=== PATIENT | female | born 1965 | race Two or more races ===

== ENCOUNTER → 2022-03-09 00:05 | Outpatient (CLI) | payer MEDICARE, SELFPAY ==
[2022-03-09 14:13] LABS: SARS-CoV-2 RNA PCR Negative
== END ==
PROVIDERS: PCP Family Medicine; Visit Provider Internal Medicine Gastroenterology
DX: Z01.812 Encounter for preprocedural laboratory examination (principal); Z20.822 Contact with and (suspected) exposure to COVID-19
CPT/HCPCS: C9803; U0003; U0005

== ENCOUNTER 2022-03-12 01:26 | Day surgery (SDC) | payer MEDICARE, SELFPAY ==
[2022-02-25 13:48] VITALS: BMI 29.2
[2022-03-12 07:27] VITALS: BP 126/78; PULSE 78; RESP 18; TEMP 36.2; O2SAT 100; BMI 29.2
[2022-03-12] MEDS: LACTATED RINGERS 1,000 ML 150 ML IV CONT (07:47)
--- NOTE | 2022-03-12 07:58 | P.CONGI_ITS ---
Assessment and Plan Assessment and plan (1) Encounter for screening colonoscopy: Code(s): Z12.11 - Encounter for screening for malignant neoplasm of colon Status: Acute Assessment and Plan: Patient presents today for neoplasia screening colonoscopy. She appears to be at average risk for colon polyps. Further recommendations will be given after endoscopy. (2) Constipation: Code(s): K59.00 - Constipation, unspecified Status: Acute Assessment and Plan: Patient complains of chronic lifelong constipation. Currently using an herbal supplement. I would recommend she try fiber such as Benefiber and add MiraLax on a daily basis initially. Further recommendations may be given after endoscopy. GI Consult Note Consult date/time: 03/12/22 07:58 HPI: Rah Anton is a 56 year old female Presents for screening colonoscopy. Patient has never previously had a colonoscopy. She reports a lifelong history of constipation. She denies any bleeding. She denies abdominal pain. It is uncertain what medication she has taken previously. Currently she takes an herbal supplement called Triphala. that she believes helps her constipation. She denies any weight loss. She presents today for colonoscopy. Her family history is noncontributory. Review of Systems Review of Systems: All systems reviewed & are unremarkable except as noted in HPI and below PMFSH Social History Social History Years smoked: 37 Smoking status: Former smoker Tobacco type: cigarettes Alcohol intake: current Alcohol use details: rarely-over a year ago Substance use: never Substance use type: does not use Living arrangements: alone Spiritual care concerns: No Meds Home Medications and Allergies Home Medications Medication Instructions Recorded Confirmed Type Adult One Daily Multivitamin 1 tab-cap PO DAILY 02/25/22 02/25/22 History [place] 3 Fish Oil 1 tab-cap PO BID 02/25/22 02/25/22 History Tart [place]as[place] Extract 1 tab-cap PO DAILY 02/25/22 02/25/22 History Vitamin B-12 1 tab-cap PO DAILY 02/25/22 02/25/22 History calcium-mag oxide-vitamin D3 1 tab-cap PO DAILY 02/25/22 02/25/22 History selenium 1 tab-cap PO DAILY 02/25/22 02/25/22 History thyroid (pork) [[place] Thyroid] 30 mg PO DAILY 02/25/22 02/25/22 History tyrosine 1 tab-cap PO DAILY 02/25/22 02/25/22 History Allergies Allergy/AdvReac Type Severity Reaction Status Date / Time hydromorphone [From Dilaudid] Allergy Flushing Verified 03/12/22 07:26 Vital Signs Vital Signs - 24 hr 03/12/22 07:27 Temperature 97.2 F L Pulse Rate 78 Respiratory Rate 18 Blood Pressure 126/78 Pulse Oximetry 100 Exam Narrative: Physical exam reveals patient to be alert. Vital signs stable. HEENT exam is unremarkable. Patient is anicteric. Lungs are clear to auscultation and percussion. Heart is without murmur or extra sounds. Abdomen bowel sounds are present soft nontender with no organomegaly. Digital external rectal exam is normal.
--- NOTE | 2022-03-12 08:16 | P.PNAN_ITS ---
Anes - Initial Pre Proc Eval Procedure: Operation Date: 03/12/22 08:30 Proposed Procedures p Screening Colonoscopy - Pancho Schulte MD Date/Time: 03/12/22 08:16 Surgeon: Pancho Schulte MD Pre Op Diagnosis: neoplasm screening Patient Data Age: 56 Gender: F Height: 1.6 m Weight: 74.8 kg Last Vital Signs Temp 97.2 F L 03/12/22 07:27 Pulse 78 03/12/22 07:27 Resp 18 03/12/22 07:27 BP 126/78 03/12/22 07:27 Pulse Ox 100 03/12/22 07:27 Allergies Allergy/AdvReac Type Severity Reaction Status Date / Time hydromorphone [From Dilaudid] Allergy Flushing Verified 03/12/22 07:26 Home Medications Medication Instructions Recorded Confirmed Type Adult One Daily Multivitamin 1 tab-cap PO DAILY 02/25/22 02/25/22 History [place] 3 Fish Oil 1 tab-cap PO BID 02/25/22 02/25/22 History Tart [place] Extract 1 tab-cap PO DAILY 02/25/22 02/25/22 History Vitamin B-12 1 tab-cap PO DAILY 02/25/22 02/25/22 History calcium-mag oxide-vitamin D3 1 tab-cap PO DAILY 02/25/22 02/25/22 History selenium 1 tab-cap PO DAILY 02/25/22 02/25/22 History thyroid (pork) [[place] Thyroid] 30 mg PO DAILY 02/25/22 02/25/22 History tyrosine 1 tab-cap PO DAILY 02/25/22 02/25/22 History Patient hx anesthesia problems: none Family hx anesthesia problems: none Results Review: All pre-operative results and documents have been reviewed as part of the pre-operative evaluation. PMFSH Social History Social History Years smoked: 37 Smoking status: Former smoker Tobacco type: cigarettes Alcohol intake: current Alcohol use details: rarely-over a year ago Substance use: never Substance use type: does not use Living arrangements: alone Spiritual care concerns: No Anes - Eval Final PreProcedure Day of Procedure 03/12/22 08:16 Patient weight: overweight Heart: regular rate and rhythm Lungs: clear to auscultation Airway: Mallampati scale class II Neurological: alert and oriented Last oral intake: >/= 8 hours ASA classification: III Emergent: no Anesthetic plan: proceed Anesthesia type and monitoring: general GIVS and standard monitoring Results Review: All pre-operative results and documents have been reviewed as part of the pre-operative evaluation. Informed Consent: The patient's anesthetic plan and its attendant risks and benefits were discussed with the patient/family/POA. Questions were solicited and answers provided to the satisfaction of the patient/family/POA.
[2022-03-12 08:56] VITALS: BP 101/61; PULSE 65; RESP 21; O2SAT 98
[2022-03-12 09:06] VITALS: BP 140/85; PULSE 77; RESP 20; O2SAT 98
[2022-03-12 09:16] VITALS: BP 109/72; PULSE 69; RESP 14; O2SAT 100
== END 2022-03-12 09:27 | disposition home or self-care (01) ==
PROVIDERS: PCP Family Medicine; Visit Provider Internal Medicine Gastroenterology
PROC: 0DJD8ZZ Inspection of Lower Intestinal Tract, Via Natural or Artificial Opening Endoscopic (ICD-10-PCS; CPT 45378; principal; 2022-03-12 08:30)
DX: Z12.11 Encounter for screening for malignant neoplasm of colon (principal); K62.1 Rectal polyp; K64.8 Other hemorrhoids; K59.00 Constipation, unspecified; Z87.891 Personal history of nicotine dependence
CPT/HCPCS: 45385; C9803; J2704; J7120; U0003; U0005

== ENCOUNTER 2024-02-18 08:12 | Outpatient (CLI) | payer MEDICARE, SELFPAY ==
--- NOTE | 2024-02-18 12:37 | WPDPFTINT ---
PFT Procedure Performed PFT Procedure Performed Spirometry with Pre/Post Bronchodilator Plethysmography (Lung Vol) Diffusing Cap (DLCO) Flow Vol Loop PFT Interpretation This is a pulmonary function test with pre and post-bronchodilator spirometry, plethysmography and diffusing capacity. The test was performed and results interpreted in accordance with the 2019 and 2005 ATS/ERS Task Force guidelines respectively using the Global Lung Function Initiative-2012 reference equations. Patient demonstrated good effort and cooperation. Reproducibility criteria were met. The quality of the pre bronchodilator spirometry maneuver was Grade A and post bronchodilator spirometry maneuver was Grade A. Findings: Spirometry: The contour the inspiratory and expiratory flow tracing are normal. The pre bronchodilator FVC is 2.73 L, 88% predicted. The pre bronchodilator FEV1 is 2.11 L, 85% predicted. The pre bronchodilator FEV1: FVC ratio 77%. The post bronchodilator FVC is 2.56 L, representing a 6% decrease. The post bronchodilator FEV1 is 2.09 L, representing 1% decrease. The post bronchodilator FEV1: FVC ratio is 82%. Plethysmography: The total lung capacity is 4.63 L, 95% predicted. The functional residual capacity is 1.33 L, 48% predicted. The residual volume is 1.30 L, 69% predicted. Diffusing capacity: The diffusing capacity unadjusted for hemoglobin and carboxyhemoglobin is 13.0, 61% predicted. The diffusing capacity adjusted for alveolar volume is 5.50, 122% predicted. Impression: The spirometry is normal without evidence of an obstructive abnormality. There is no significant improvement after inhaling a single dose of albuterol. The total lung capacity and residual volume are normal with a decreased functional residual capacity. This is an abnormal but nonspecific lung volume pattern. The diffusing capacity unadjusted for hemoglobin and carboxyhemoglobin is mildly decreased and normalizes when adjusted for alveolar volume. There are no prior studies for comparison
== END 2024-02-18 08:13 | disposition home or self-care (01) ==
LOC: ANHPFT 08:13
PROVIDERS: PCP Family Medicine; Visit Provider Physician Assistant
DX: R06.09 Other forms of dyspnea (principal); Z87.891 Personal history of nicotine dependence
CPT/HCPCS: 94060; 94726; 94729

== ENCOUNTER 2024-04-14 09:55 | Outpatient (CLI) | payer MEDICARE, SELFPAY ==
--- NOTE | ~2024-04-14 | CT_ITS ---
CT Scan of the Chest without Contrast: Clinical Indication: Solitary pulmonary nodule Technique: Contiguous sections were acquired throughout the chest without intravenous contrast. Dose reduction technique was used on this scan by utilizing automated exposure control and iterative recon struction technique. The dose-length product (DLP) was 167.02 mGy-cm. Findings: There is no evidence of any significant mediastinal, hilar or axillary lymphadenopathy. The mediastin al soft tissues appear normal. There is no evidence of pleural or pericardial effusion. Small calcified left upper lobe granuloma noted. 2 mm right middle lobe pulmonary nodule present.. Images through the upper abdomen reveal no abnormalities. Impression: 2 mm right middle lobe pulmonary nodule. According to Fleischner Society criteria, for a low-risk pat ient, no further follow-up required. For a high-risk patient, consider 12 month follow-up CT. Reviewed, dictated and finalized at [facility]. Impression: 2 mm right middle lobe pulmonary nodule. According to Fleischner Society criter ia, for a low-risk patient, no further follow-up required. For a high-risk caroline ent, consider 12 month follow-up CT.
== END 2024-04-14 09:56 | disposition home or self-care (01) ==
LOC: ANHIMG 09:56
PROVIDERS: PCP Family Medicine; Visit Provider Physician Assistant
DX: R91.1 Solitary pulmonary nodule (principal); R06.09 Other forms of dyspnea; Z87.891 Personal history of nicotine dependence
CPT/HCPCS: 71250

== ENCOUNTER 2024-05-05 08:57 | Outpatient (CLI) | payer MEDICARE, SELFPAY ==
[2024-05-05 12:43] LABS: Hematocrit 40.5 % (37.0-47.0); Hemoglobin 13.1 g/dL (12.0-15.0); Mean Corpuscular HGB Conc 32.3 g/dl (32-36); Mean Corpuscular Hemoglobin 29.4 pg (26-34); Mean Corpuscular Volume 90.8 fl (80-100); Mean Platelet Volume 12.8 fl (7.4-10.4); Platelet Count Result 257 k/mm3 (150-375); Red Blood Count 4.46 M/mm3 (4.2-5.4); Red Cell Distribution Width 13.2 % (11.5-14.5); White Blood Count 5.7 K/mm3 (4.5-10.0)
[2024-05-05 13:27] LABS: Alanine Aminotransferase 29 U/L (6-35); Albumin Level 4.5 g/dL (3.5-5.1); Alkaline Phosphatase 106 U/L (38-126); Anion Gap 6 mmol/L (4-12); Aspartate Amino Transferase 52 U/L (14-36); Bilirubin,Total 0.6 mg/dL (0.2-1.3); Blood Urea Nitrogen 26 mg/dL (7-17); Calcium 9.3 mg/dL (8.4-10.2); Carbon Dioxide 28 mmol/L (22-30); Chloride 106 mmol/L (98-107); Cholesterol 239 mg/dL (0-200); Estimated Glomerular Filt Rate > 60; Glucose 111 mg/dL (65-110); HDL Direct 48 mg/dL; Potassium 4.4 mmol/L (3.4-5.0); Sodium 140 mmol/L (137-145); Triglycerides 116 mg/dL (<150)
[2024-05-05 13:32] LABS: Free T4 Free Thyroxine 0.92 ng/mL (0.78-2.19)
[2024-05-05 13:33] LABS: Hemoglobin A1C 5.9 % (<5.7)
[2024-05-05 13:38] LABS: LDL Cholesterol Direct 164 mg/dL
== END 2024-05-05 08:58 | disposition home or self-care (01) ==
PROVIDERS: PCP Family Medicine; Visit Provider Family Medicine
DX: E06.3 Autoimmune thyroiditis (principal); G43.909 Migraine, unspecified, not intractable, without status migrainosus; M19.90 Unspecified osteoarthritis, unspecified site; R73.03 Prediabetes; Z79.899 Other long term (current) drug therapy
CPT/HCPCS: 36415; 80053; 80061; 83036; 84439; 84443; 85027

== ENCOUNTER 2024-10-01 09:07 | Outpatient (CLI) | payer MEDICARE, SELFPAY ==
[2024-10-01 12:05] LABS: Hematocrit 41.3 % (37.0-47.0); Hemoglobin 13.3 g/dL (12.0-15.0); Immature Platelet Fraction Pct 14.3 % (0.9-11.2); Mean Corpuscular HGB Conc 32.2 g/dl (32-36); Mean Corpuscular Hemoglobin 29.7 pg (26-34); Mean Corpuscular Volume 92.2 fl (80-100); Platelet Count Result 255 k/mm3 (150-375); Red Blood Count 4.48 M/mm3 (4.2-5.4); Red Cell Distribution Width 13.3 % (11.5-14.5); White Blood Count 6.3 K/mm3 (4.5-10.0)
[2024-10-01 12:23] LABS: Alanine Aminotransferase 37 U/L (6-35); Albumin Level 4.4 g/dL (3.5-5.1); Alkaline Phosphatase 109 U/L (38-126); Anion Gap 6 mmol/L (4-12); Aspartate Amino Transferase 54 U/L (14-36); Bilirubin,Total 0.6 mg/dL (0.2-1.3); Blood Urea Nitrogen 26 mg/dL (7-17); Calcium 9.2 mg/dL (8.4-10.2); Carbon Dioxide 29 mmol/L (22-30); Chloride 104 mmol/L (98-107); Cholesterol 194 mg/dL (0-200); Estimated Glomerular Filt Rate > 60; Glucose 116 mg/dL (65-110); HDL Direct 43 mg/dL; Potassium 4.3 mmol/L (3.4-5.0); Sodium 139 mmol/L (137-145); Triglycerides 93 mg/dL (<150)
[2024-10-01 12:38] LABS: LDL Cholesterol Direct 113 mg/dL
[2024-10-01 12:58] LABS: Thyroid Stimulating Hormone 0.999 uIU/mL (0.465-4.680)
[2024-10-01 13:05] LABS: Hemoglobin A1C 6.3 % (<5.7)
== END 2024-10-01 09:08 | disposition home or self-care (01) ==
PROVIDERS: PCP Family Medicine; Visit Provider Family Medicine
DX: R73.03 Prediabetes (principal); Z79.899 Other long term (current) drug therapy
CPT/HCPCS: 36415; 80053; 80061; 83036; 84443; 85027; 85055

== ENCOUNTER 2025-06-15 08:49 | Outpatient (CLI) | payer BC, SELFPAY ==
--- OUTSIDE RECORDS SUMMARY | 2025-06-15 08:59 | XMS_ITS | Continuity of Care Document ---
Author Organization [facility] Address [address] [place] [address] Phone Care Team Providers Care Paper Tube Cutter Name Role Phone Matt Worley DDS Unavailable Unavailable Procedures Procedure Date Resin Based Composite One Surface Amalgam-one surface, primary or permanen t Comprehensive oral evaluation-new or est ablished P Intraoral-periapical first film 009 Bitewing Single Film Advance Directives Directive Yes / No Effective Date File Name No Information Encounters Encounter Description Practice Location Reason(s) For Visit Diagnoses Date Provider Providers Copied on Encounter [facility], [address] [place] [address], [facility], tel:[phone] [facility] No Information Brunilda Gutierrez. [address] [place] [address], [facility], . tel:[phone] [facility], [address] [place] [address], [facility], tel:[phone] [facility] No Information Gargir Luis. [address] [place] [address], [facility], . tel:[phone] [facility], [address] [place] [address], [facility], tel:[phone] [facility] No Information Brunilda Gutierrez. [address] [place], [place], [facility], . tel:[phone] Family History Family Member Type Diagnosis Age At Onset No Information Payers Payer name Insurance type Covered alliance party ID Murray escobar(s) [employer] Medicaid Dental [id number] Social History Type Description Quantity Date Captured Comments Sex Female Smoking Status No Information Chief Complaint And Reason For Visit No Information History Of Present Illness Encounter Date Complaint History Of Prese nt Illness No Information Instructions Date Instruction Additional Infor mation No Information Assessments Type Assessment Date No Information Patient Care Teams Name Effective Dates (start - stop) Status Members No Information
--- OUTSIDE RECORDS SUMMARY | 2025-06-15 08:59 | XMS_ITS | Clinical Summary ---
Author Organization [facility] Address [address] [place] [address] Phone Care Team Providers Care Central Sterile Tech Name Role Phone LowSara jameson Primary Care Provider [phone] Allergies Active Allergy Reactions Criticality Noted Date Comments Hydromorphone Hcl Swelling 03/26/2016 Mushroom Extract Complex (Obsolete) Vomiting 01/10/2020 Other-Environmental Allergen (Not Found In Search) Other (see Comments) 12/12/2020 Migraine cocktail- causes seizures Medications MAGNESIUM PO Take by mouth. Active [place]-3 Fatty Acids (OMEGA 3 PO) Take by mouth. Active Calcium Acetate, Phos Binder, (CALCIUM ACETATE PO) Take by mouth. Active Ascorbic Acid (VITAMIN C PO) Take by mouth. Active Black Cohosh 540 MG Capsule Take by mouth. Active Probiotic, Lactobacillus, Capsule Take by mouth. Active simvastatin (ZOCOR) 10 MG Tablet Take 10 mg by mouth daily. 05/07/2024 Active TYROSINE PO Take by mouth every morning. L-Tyrosine Active Active Problems No known active problems Family History Medical History Relation Name Comments Liver Disease Brother Heart Attack Father Diabetes Paternal Grandmother Heart Attack Paternal Grandmother Relation Name Status Comments Brother Alive Father Maternal Grandfather Maternal Grandmother Mother Alive Paternal Grandfather Paternal Grandmother Social History Tobacco Use Types Packs/Day Years Used Date Smoking Tobacco: Former Cigarettes Q uit: 05/10/2019 Smokeless Tobacco: Never Tobacco Cessation:Counseling Given: Not Answered Alcohol Use Standard Drinks/Week Comments Yes 0 (1 standard drink = 0.6 oz pur e alcohol) Rarely Comments No Sex and Gender Information Value Date Recorded Sex Assigned at Not on file Legal Sex Female 8:54 PM CDT Gender Identity Not on file Sexual Orientation Not on file Last Filed Vital Signs Vital Sign Reading Time Taken Comments Blood Pressure 104/88 05/28/2024 9:26 AM CDT Pulse 80 05/28/2024 9:26 AM CDT Temperature 37 C (98.6 F) 05/28/2024 9:26 AM CDT Respiratory Rate 18 05/28/2024 9:26 AM CDT Oxygen Saturation 98% 05/28/2024 9:26 AM CDT Inhaled Oxygen Concentration - - Weight 83.5 kg (184 lb) 05/28/2024 9:26 AM CDT Height 160 cm (5' 3) 03/31/2023 7:14 PM CDT Body Mass Index 32.59 03/31/2023 7:14 PM CDT Plan of Treatment Health Maintenance Due Date Last Done Comments Hepatitis C Virus (HCV) Screening 1965 Mammogram 1965 TdaP Immunization 1965 Hepatitis B Immunization (1 of 3 - 19+ 3-dose series) 1984 Pap Smear 1986 Cervical Cancer Screening (CCS) 1995 HPV/Cotest 1995 Cologuard 2010 Colonoscopy 2010 Colorectal Cancer Screening 2010 Immunochemical Fecal Occult Blood 2010 Pneumococcal Immunization (5 0+ years) (1 of 1 - PCV) 2015 Zoster Immunization (1 of 2) 2015 SARS-COV-2 Immunization ( - season) 2024 Influenza Immunization (#1) 2025 Respiratory Syncytial Virus (RSV) Immunization (Adult) (1 - 1-dose 75+ series) 2040 Human Papillomavirus (HPV) Immunization Aged Out No longer eligible b ased on patient's age to complete this topic Meningococcal Immunization (ACWY) Aged Out No longer eligible based on patient's age to complete this topic Rotavirus Immunization Aged Out No lo nger eligible based on patient's age to complete this topic Insurance MEDICARE C [facility] Care Teams Central Sterile Tech Relationship Specialty Start Date End Date Sara Rodriguez DO [address] [place] [address] PCP - General Family Medicine 05/28/24
--- OUTSIDE RECORDS SUMMARY | 2025-06-15 08:59 | XMS_ITS | Referral Summary ---
Author Organization [facility] Address [address] [place] [address] Care Team Providers Care Career Services Assistant Name Role Phone Sara Rodriguez DO Primary Care Provider [phone] Allergies Active Allergy Reactions Criticality Noted Date Comments Hydromorphone Mushroom Medications black cohosh 540 mg capsule Take by mouth. Active iodine, kelp, tablet Take by mouth. Active puhobvj-fua-R nfmqagk-C8-ntf67 tablet Take by mouth. Active KAVA KAVA ORAL Take by mouth. Active tqdphoya-jdjj-zc n-folic acid 18-0.4 mg tablet Take by mouth. Active calcium-magnesiu m 300-300 mg tablet Take by mouth. Active onmqf-ct-8-dha-e yr-webntlv-maz 1,390-582-08-80 mg capsule Take by mouth Active [place] Thyroid 15 mg tablet Take 15 mg by mouth 2 (two) times a day 06/29/2021 Active Lactobacillus acidophilus (Probiotic) 10 billion cell capsule Take by mouth Active lysine 500 mg tablet 500 mg Active cyclobenzaprine (FLEXERIL) 5 mg tabletIndication s:Neck pain Take 1 tablet (5 mg total) by mouth 3 (three) times a day as needed for muscle spasms 60 tablet 07/29/2022 Active Active Problems Problem Noted Date Diagnosed Date Tremor 07/30/2022 Neck pain 07/29/2022 Memory loss, short term 07/07/2017 Seizure-like activity Social History Tobacco Use Types Packs/Day Years Used Date Smoking Tobacco: Former Smokeless Tobacco: Never Tobacco Cessation:Counseling Given: Not Answered Alcohol Use Standard Drinks/Week Comments Yes 0 (1 standard drink = 0.6 oz pur e alcohol) Comments No Sex and Gender Information Value Date Recorded Sex Assigned at Not on file Legal Sex Female 4:18 AM CLIENT SERVICE COORDINATOR Gender Identity Not on file Sexual Orientation Not on file Last Filed Vital Signs Vital Sign Reading Time Taken Comments Blood Pressure 143/92 07/29/2022 8:50 AM CDT Pulse 76 07/29/2022 8:50 AM CDT Temperature 36.4 C (97.5 F) 12/15/2019 10:10 PM CLIENT SERVICE COORDINATOR Respiratory Rate 18 12/15/2019 10:10 PM CLIENT SERVICE COORDINATOR Oxygen Saturation 98% 12/15/2019 10:10 PM CLIENT SERVICE COORDINATOR Inhaled Oxygen Concentration - - Weight 75.4 kg (166 lb 3.2 oz) 07/29/2022 8:50 A M CDT Height 160 cm (5' 3) 07/29/2022 8:50 AM CDT Body Mass Index 29.44 07/29/2022 8:50 AM CDT Plan of Treatment Not on file Insurance MEDICARE [facility] Address: [address] [address] [place] [address] [facility] MEDICARE ADVANTAGE [facility] MEDICARE ADVANTAGE Care Teams Career Services Assistant Relationship Specialty Start Date End Date Sara Rodriguez DO [facility] [address] [address] PCP - General Family Medicine 09/09/24
--- OUTSIDE RECORDS SUMMARY | 2025-06-15 08:59 | XMS_ITS | Clinical Summary ---
Author Organization [facility] Address [address] [place] [address] Care Team Providers Care Humanities Department Chair Name Role Phone Sara Rodriguez DO Primary Care Provider [phone]- [phone] Allergies Active Allergy Reactions Criticality Noted Date Comments Hydromorphone Mushroom Medications black cohosh 540 mg capsule Take by mouth. Active iodine, kelp, tablet Take by mouth. Active xbnkxyb-uqg-L ckxxopw-S7-uhq71 tablet Take by mouth. Active KAVA KAVA ORAL Take by mouth. Active loblxcba-yxny-nu n-folic acid 18-0.4 mg tablet Take by mouth. Active calcium-magnesiu m 300-300 mg tablet Take by mouth. Active syxpz-uc-9-dha-e lo-lxoplbb-fyq 1,274-183-58-80 mg capsule Take by mouth Active [place] Thyroid 15 mg tablet Take 15 mg [...] Memory loss, short term 07/07/2017 Seizure-like activity Surgical History Surgery Date Site/Laterality Comments CERVICAL FUSION 11/17/2005 - 11/16/2006 MANDIBULAR DILATION 11/17/1997 - 11/16/1998 EXCISION / CURRETTAGE OF BON E CYST / BENIGN TUMOR OF PROXIMAL HUMERUS W/ OR W/O BONE GRAFT 11/17/2001 - 11/16/2002 SECTION 11/17/1993 - 11/16/1994 Medical History Medical History Date Comments Seizures (HCC) Migraine Anxiety Depression Pre-diabetes Family History Medical History Relation Name Comments Diabetes Father Hypertension Father Hypertension Mother Migraines Mother Heart disease Neg Hx Relation Name Status Comments Father Mother Social History Tobacco Use Types Packs/Day Years Used Date Smoking Tobacco: Former Smokeless Tobacco: Never Tobacco Cessation:Counseling Given: Not Answered Alcohol Use Standard Drinks/Week Comments Yes 0 (1 standard drink = 0.6 oz pur e alcohol) Comments No Sex and Gender Information Value Date Recorded Sex Assigned at Not on file Legal Sex Female 4:18 AM EARLY CHILDHOOD TEACHER Gender Identity Not on file Sexual Orientation Not on file Obstetrics History Last Filed Vital Signs Vital Sign Reading Time Taken Comments Blood Pressure 143/92 07/29/2022 8:50 AM CDT Pulse 76 07/29/2022 8:50 AM CDT Temperature 36.4 C (97.5 F) 12/15/2019 10:10 PM EARLY CHILDHOOD TEACHER Respiratory Rate 18 12/15/2019 10:10 PM EARLY CHILDHOOD TEACHER Oxygen Saturation 98% 12/15/2019 10:10 PM EARLY CHILDHOOD TEACHER Inhaled Oxygen Concentration - - Weight 75.4 kg (166 lb 3.2 oz) 07/29/2022 8:50 A M CDT Height 160 cm (5' 3) 07/29/2022 8:50 AM CDT Body Mass Index 29.44 07/29/2022 8:50 AM CDT Plan of Treatment Health Maintenance Due Date Last Done Comments Breast Cancer Screening-Mammogram 1965 Cervical Cancer Screening 1965 Colon Cancer Screening-Colonoscopy 1965 Depression Screening 1965 Hepatitis C Screening 1965 DTaP/Tdap/Td Vaccine (1 - Tdap) 1976 Hepatitis B Screening 1983 Regular Well Visit/Exam 18-64 1983 Zoster Vaccine (1 of 2) 2015 Influenza Vaccine (#1) 2025 Pneumococcal vaccine <65 Aged Out No longer eligible based on patient's age to complete this topic Insurance MEDICARE [facility] MEDICARE ADVANTAGE [facility] MEDICARE ADVANTAGE Care Teams Humanities Department Chair Relationship Specialty Start Date End Date Sara Rodriguez DO [address] [place] [address] DR MAGALLON [address] [place] [id number] PCP - General Family Medicine 09/09/24
[2025-06-15 20:07] LABS: Hematocrit 45.5 % (37.0-47.0); Hemoglobin 14.3 g/dL (12.0-15.0); Immature Granulocyte Percent A 0.2 % (0-0.5); Immature Platelet Fraction Pct 14.3 % (0.9-11.2); Lymphocytes Absolute Auto 2.26 K/mm3 (0.9-3.2); Mean Corpuscular HGB Conc 31.4 g/dl (32-36); Mean Corpuscular Hemoglobin 28.0 pg (26-34); Mean Corpuscular Volume 89.2 fl (80-100); Nucleated Red Blood Cells Absolute Auto 0.000 K/mm3 (0.0-0.012); Nucleated Red Blood Cells Perc 0.0 % (0.0-0.2); Platelet Count Result 224 k/mm3 (150-375); Red Blood Count 5.10 M/mm3 (4.2-5.4); White Blood Count 5.2 K/mm3 (4.5-10.0)
[2025-06-15 20:13] LABS: Alanine Aminotransferase 32 U/L (6-35); Albumin Level 4.3 g/dL (3.5-5.1); Alkaline Phosphatase 109 U/L (38-126); Anion Gap 5 mmol/L (4-12); Aspartate Amino Transferase 72 U/L (14-36); Bilirubin,Total 0.3 mg/dL (0.2-1.3); Blood Urea Nitrogen 18 mg/dL (7-17); Calcium 9.4 mg/dL (8.4-10.2); Carbon Dioxide 29 mmol/L (22-30); Chloride 105 mmol/L (98-107); Cholesterol 230 mg/dL (0-200); Estimated Glomerular Filt Rate 59; Glucose 107 mg/dL (65-110); HDL Direct 45 mg/dL; Potassium 4.8 mmol/L (3.4-5.0); Sodium 139 mmol/L (137-145); Total Protein 7.5 g/dL (6.3-8.2); Triglycerides 71 mg/dL (<150)
[2025-06-15 20:47] LABS: Hemoglobin A1C 6.5 % (<5.7)
[2025-06-15 20:49] LABS: Thyroid Stimulating Hormone 2.410 uIU/mL (0.465-4.680)
== END 2025-06-15 08:50 | disposition home or self-care (01) ==
LOC: ANHGOSHLAB 08:50
PROVIDERS: PCP Family Medicine; Visit Provider Family Medicine
DX: E78.5 Hyperlipidemia, unspecified (principal); E66.9 Obesity, unspecified; R73.03 Prediabetes; R79.89 Other specified abnormal findings of blood chemistry; Z79.899 Other long term (current) drug therapy
CPT/HCPCS: 36415; 80053; 80061; 83036; 84443; 85025; 85055

== ENCOUNTER 2025-06-23 13:52 | Outpatient (CLI) | payer BC, SELFPAY ==
--- OUTSIDE RECORDS SUMMARY | 2025-06-23 13:56 | XMS_ITS | Clinical Summary ---
Author Organization [facility] Address [address] [place] [address] Care Team Providers Care Credit Risk Manager Name Role Phone Sara Rodriguez DO Primary Care Provider [phone]- [phone] Allergies Active Allergy Reactions Criticality Noted Date Comments Hydromorphone Mushroom Medications black cohosh 540 mg capsule Take by mouth. Active iodine, kelp, tablet Take by mouth. Active mmajkca-lqy-P hkvxpfy-Z5-htn64 tablet Take by mouth. Active KAVA KAVA ORAL Take by mouth. Active zshmmagg-xxss-hw n-folic acid 18-0.4 mg tablet Take by mouth. Active calcium-magnesiu m 300-300 mg tablet Take by mouth. Active atwnp-jy-9-dha-e lt-ikrgwul-ixr 1,111-174-59-80 mg capsule Take by mouth Active [place] Thyroid 15 mg tablet Take 15 mg [...] on file Legal Sex Female 4:18 AM FILLING SEPARATOR Gender Identity Not on file Sexual Orientation Not on file Obstetrics History Last Filed Vital Signs Vital Sign Reading Time Taken Comments Blood Pressure 143/92 07/29/2022 8:50 AM CDT Pulse 76 07/29/2022 8:50 AM CDT Temperature 36.4 C (97.5 F) 12/15/2019 10:10 PM FILLING SEPARATOR Respiratory Rate 18 12/15/2019 10:10 PM FILLING SEPARATOR Oxygen Saturation 98% 12/15/2019 10:10 PM FILLING SEPARATOR Inhaled Oxygen Concentration - - Weight 75.4 [...] age to complete this topic Insurance MEDICARE [facility] MEDICARE ADVANTAGE [facility] MEDICARE ADVANTAGE [facility] Address: [address] [address] [place] [address] Care Teams Credit Risk Manager Relationship Specialty Start Date End Date Sara Rodriguez DO [address] [place] [address] DR MAGALLON [address] [place] [id number] PCP - General Family Medicine 09/09/24
--- OUTSIDE RECORDS SUMMARY | 2025-06-23 13:56 | XMS_ITS | Clinical Summary ---
Author Organization [facility] Address [address] [place] [address] Phone Care Team Providers Care Rn Internship Name Role Phone LowSara jameson Primary Care Provider +1- [phone] Allergies Active Allergy Reactions Criticality Noted Date Comments Hydromorphone Hcl Swelling 03/26/2016 Mushroom Extract Complex (Obsolete) Vomiting 01/10/2020 Other-Environmental Allergen (Not Found In Search) Other (see Comments) 12/12/2020 Migraine cocktail- causes seizures Medications MAGNESIUM PO Take by mouth. Active [place]-3 Fatty Acids (OMEGA 3 PO) Take by [...] to complete this topic Insurance MEDICARE C [facility] Care Teams Rn Internship Relationship Specialty Start Date End Date Sara Rodriguez DO [address] [place] [address] PCP - General Family Medicine 05/28/24
[2025-06-23 19:53] LABS: Alanine Aminotransferase 29 U/L (6-35); Albumin Level 4.2 g/dL (3.5-5.1); Alkaline Phosphatase 102 U/L (38-126); Anion Gap 8 mmol/L (4-12); Aspartate Amino Transferase 35 U/L (14-36); Bilirubin,Total 0.4 mg/dL (0.2-1.3); Blood Urea Nitrogen 20 mg/dL (7-17); Calcium 9.3 mg/dL (8.4-10.2); Carbon Dioxide 29 mmol/L (22-30); Chloride 102 mmol/L (98-107); Estimated Glomerular Filt Rate > 60; Glucose 156 mg/dL (65-110); Potassium 3.9 mmol/L (3.4-5.0); Sodium 139 mmol/L (137-145); Total Protein 7.3 g/dL (6.3-8.2)
== END 2025-06-23 13:53 | disposition home or self-care (01) ==
LOC: ANHGOSHLAB 13:53
PROVIDERS: PCP Family Medicine; Visit Provider Family Medicine
DX: Z79.899 Other long term (current) drug therapy (principal)
CPT/HCPCS: 36415; 80053